=== PATIENT | male | born 1965 | race Caucasian/White ===

== ENCOUNTER → 2019-03-12 14:42 | Outpatient (CLI) | payer OTHER, SELFPAY ==
--- NOTE | 2019-03-12 14:47 | XR_ITS ---
XR foot wt bearing LT 3V HISTORY: ITS.REASON: pain ORDERING PHYSICIAN: Jackie Mayfield DPM PATIENT AGE: 53 years COMPARISON: None FINDINGS: There is moderate hallux valgus with osteoarthritis of the first MTP joint and bony hypertrophic change of the distal aspect of the first metatarsal. A lucency is present at the distal aspect of the first metatarsal 12 mm consistent with a subarticular cyst. There is hammertoe deformity of the second toe. No fracture or dislocation. No lytic or blastic change. IMPRESSION: Hallux valgus with osteoarthritis and bunion formation with hammertoe deformity of second toe
--- NOTE | 2019-03-12 14:47 | XR_ITS ---
XR foot wt bearing RT 3V HISTORY: ITS.REASON: pain ORDERING PHYSICIAN: Jackie Mayfield DPM PATIENT AGE: 53 years COMPARISON: None FINDINGS: No fracture or dislocation. No lytic or blastic change. There is normal mineralization.. The joint spaces are well-preserved. No significant degenerative/arthritic changes. No erosive changes evident. IMPRESSION: Negative, no acute finding
== END ==
PROVIDERS: PCP Nurse Practitioner; Visit Provider Podiatrist
DX: M79.672 Pain in left foot (principal); M79.671 Pain in right foot
CPT/HCPCS: 73630

== ENCOUNTER → 2019-05-25 10:35 | Outpatient (POV) | payer OTHER, SELFPAY | PROVIDERS: Visit Provider Specialist | DX: R20.2 Paresthesia of skin (principal); M79.604 Pain in right leg; M79.605 Pain in left leg | CPT/HCPCS: 95886; 95909 ==

== ENCOUNTER → 2020-09-02 11:03 | Outpatient (CLI) | payer OTHER, SELFPAY | PROVIDERS: PCP Family Medicine; Visit Provider Nurse Practitioner | DX: G47.33 Obstructive sleep apnea (adult) (pediatric) (principal) | CPT/HCPCS: G0399 ==

== ENCOUNTER → 2021-11-07 08:19 | Outpatient (CLI) | payer OTHER, SELFPAY | PROVIDERS: Visit Provider Nurse Practitioner | DX: Z20.822 Contact with and (suspected) exposure to COVID-19 (principal) | CPT/HCPCS: C9803; U0003; U0005 ==

== ENCOUNTER → 2022-01-03 10:24 | Outpatient (CLI) | payer BC, SELFPAY ==
--- NOTE | 2022-01-03 10:34 | US_ITS ---
FINAL REPORT CLINICAL HISTORY: HIGH TRIGLYCERIDES,ELEVATED LIVER FUNCTION; obesity FINDINGS: Sonographic images of the right upper quadrant were obtained. The pancreas is partially obscured. The liver has increased echogenicity consistent with fatty infiltration. The gallbladder appears normal without evidence of gallstones.There is no evidence of biliary ductal dilatation.The common duct measures 5 mm. Limited images of the right kidney are unremarkable. IMPRESSION: Fatty infiltration of the liver. Reviewed, Interpreted and Dictated by Vin Pardo III, MD Transcribed by Julianna Ortiz Authenticated by Vin Pardo III, MD on 01/03/2022 12:31:04 PM [facility]
== END ==
PROVIDERS: PCP Family Medicine; Visit Provider Family Medicine
DX: E78.1 Pure hyperglyceridemia (principal); R79.89 Other specified abnormal findings of blood chemistry
CPT/HCPCS: 76705

== ENCOUNTER → 2023-01-15 14:01 | Outpatient (CLI) | payer BC, SELFPAY ==
[2023-01-15 19:52] LABS: Basophils # 0.1 K/mm3 (0-0.2); Eosinophils # 0.1 K/mm3 (0.0-0.4); Eosinophils % 1.8 % (0.1-12.0); Hemoglobin 16.3 g/dL (14.1-18.0); Lymphocytes # 2.3 K/mm3 (0.7-4.5); Lymphocytes % 29.4 % (10-50); Mean Corpuscular HGB Conc 31.9 g/dL (31.8-35.4); Mean Corpuscular Hemoglobin 34.9 pg (27.0-31.2); Mean Corpuscular Volume 109.3 fl (80-94); Mean Platelet Volume 9.6 fl (7.4-10.4); Monocytes # 0.5 K/mm3 (0.1-1.0); Monocytes % 6.2 % (1.7-9.3); Neutrophils # 4.8 K/mm3 (1.8-7.8); Neutrophils % 61.7 % (37.0-80.0); Platelet Count 249 K/mm3 (142-424); Red Blood Count 4.67 M/mm3 (4.60-6.20); Red Cell Distribution Width 13.6 % (11.5-17.5); White Blood Count 7.7 K/mm3 (4.8-10.8)
[2023-01-15 20:55] LABS: Alanine Aminotransferase 51 U/L (12-78); Albumin Level 4.6 g/dl (3.5-5.0); Alkaline Phosphatase 111 U/L (38-126); Anion Gap 11.3 mEq/L (5-15); Aspartate Amino Transferase 46 U/L (17-59); Bilirubin,Total 0.7 mg/dl (0.2-1.3); Blood Urea Nitrogen 12 mg/dl (9-20); Calcium 9.2 mg/dl (8.4-10.2); Carbon Dioxide 27 mmol/L (22.0-30.0); Chloride 100 mmol/L (98-107); Chol/HDL Ratio 3.9 (1-3.5); Cholesterol 180 mg/dl (140-200); Estimated Glomerular Filt Rate 86 ml/min (>60); GFR (African American) 105 ML/MIN (>60); Globulin 2.3 g/dL (1.3-3.2); Glucose 99 mg/dl (74-100); HDL Cholesterol 46 mg/dl (40-60); Potassium 4.3 mmoL/L (3.5-5.1); Sodium 134 mmol/L (136-145); Total Protein,Serum 6.9 g/dl (6.3-8.2); Triglycerides 284 mg/dl (30-150); VLDL Cholesterol 57 mg/dL (0-40)
[2023-01-15 21:07] LABS: Direct LDL Cholesterol 95.74 mg/dL (100-129)
[2023-01-15 21:13] LABS: 25-OH Vitamin D, Total 33.5 ng/mL (30-100)
[2023-01-15 21:27] LABS: Prostate Specific Ag Screen 0.3 ng/ml (0.0-4.0); Thyroid Stimulating Hormone 2.02 uIU/mL (0.465-4.68)
== END ==
PROVIDERS: PCP Physician Assistant; Visit Provider Physician Assistant
DX: I10 Essential (primary) hypertension (principal); Z12.5 Encounter for screening for malignant neoplasm of prostate; E66.9 Obesity, unspecified; Z68.34 Body mass index [BMI] 34.0-34.9, adult
CPT/HCPCS: 80053; 80061; 82306; 84443; 85025; G0103

== ENCOUNTER → 2023-01-25 07:34 | Outpatient (CLI) | payer BC, SELFPAY ==
--- NOTE | 2023-01-25 07:34 | MR_ITS ---
FINAL REPORT CLINICAL HISTORY: cervical nerve radiculopathy. RIGHT SIDED NECK AND SHOULDER PAIN FINDINGS: Multi planar MR imaging was obtained of the cervical spine. There is abnormal decreased signal throughout the cervical discs. There is mild loss of height at C5-6. There is no malalignment. The cervical cord demonstrates normal signal and configuration. C2-C3: There is no evidence of significant disc bulge or protrusion. There is no significant facet hypertrophy. C3-C4: Moderate diffuse disc bulge and endplate hypertrophy are present. There is mild right and high-grade left neural foraminal narrowing. C4-C5: Moderate diffuse disc bulge is present with moderate bilateral neural foraminal narrowing. C5-C6: Mild diffuse disc bulge is present. There is endplate hypertrophy, eccentric to the right with moderate right and mild left neural foraminal narrowing. C6-C7: There is no evidence of significant disc bulge or protrusion. There is no significant facet hypertrophy. C7-T1: There is no evidence of significant disc bulge or protrusion. There is no significant facet hypertrophy. IMPRESSION: Neural foraminal compromise, most evident on the left at C3-4, bilaterally at C4-5, and on the right at C5-6. Reviewed, Interpreted and Dictated by Chele Gann MD Transcribed by Phuong Carmona Authenticated and [facility]
== END ==
PROVIDERS: PCP Physician Assistant; Visit Provider Physician Assistant
DX: M54.12 Radiculopathy, cervical region (principal)
CPT/HCPCS: 72141; 76376

== ENCOUNTER → 2023-02-18 14:42 | Outpatient (POV) | payer BC, SELFPAY ==
[2023-02-18 15:38] VITALS: RESP 18; BMI 33.5
--- NOTE | 2023-02-18 15:56 | EXP.PAIN.OV ---
HPI Data of Consult Patient: new to practice Consult date: 02/18/23 Requesting Physician: Alexia Nicholson APRN Consult Narrative Reason for consult: Bilateral shoulder pain, bilateral upper extremity numbness History of present illness: Mr. Dahl is a 57 year old male who presents today as a new patient. He is a referral from Isabell Goldman's office. Today he rates his pain a 6 out of 10. He does state that his pain is in his bilateral shoulders with radiating symptoms into his upper extremities causing significant numbness. Patient does describe his shoulder pain as an aching, sharp sensations that are worse with increased activity or certain movements. Patient does state this has been going on for at least 3 months however he has had numbness in his upper extremities for at least 8 years. He does state that around that same time he had his right thumb go numb and its never came back. Patient denies any specific trauma or injury. He does state that his numbness in his upper extremities does cause significant interference with his ability to sleep. He has tried muscle relaxers and NSAIDs in the past with no additional relief. Patient has also used [id number] Tylenol and ibuprofen along with heat and ice and a TENS unit that did give some relief. Patient has also had Biofreeze that stated did okay however not long-term relief. Patient denies any previous surgery or physical therapy. He has not had any injections. Patient does state that his right arm is worse than the left. He is scheduled to do an EMG test next Saturday. He does state that he was seeing a chiropractor in the past however he did not get additional relief. Patient is not on any scheduled medications. Patient is very active and works at [employer]. His Saul is [phone]. Its been reviewed and appropriate. CC: Alexia Nicholson APRN [facility] Disclaimer: The information contained in this section may have been updated after the patient was seen, as this information can be updated by other users. Medical History (Updated 02/18/23 @ 15:59 by Alexia Nicholson APRN) Environmental allergies GERD (gastroesophageal reflux disease) Gout Hyperlipidemia Hypertension Family History Sister Cancer Brother Cancer Father Cancer Hypertension Coronary artery disease Social History (Updated 02/18/23 @ 15:39 by Veronica Cota RN) Smoking Status: Current every day smoker (1 pack per day) tobacco type: cigarettes packs per day: 1 alcohol intake: current current occupational status: employed Travel in the last 8 weeks: None Review of Systems Review of Systems Review of systems:: pertinent systems reviewed and negative unless documented below Review of systems (narrative): Review of Systems: General: No recent weight changes, no fever, no sleep disturbances Respiratory: No cough, no shortness of air, no recurring pulmonary infections Cardiovascular/peripheral vascular: No chest pain, no palpitations, no edema, no shortness of breath Gastrointestinal: No new onset incontinence, normal bowel movements reported Genitourinary: No new onset incontinence Musculoskeletal: Bilateral shoulder pain, bilateral upper extremity numbness Psychiatric: [Normal mood/affect] Neurological: [Denies weakness in extremities], [denies balance issues] Meds Home Medications and Allergies Home Medications Medication Instructions Recorded Confirmed Type allopurinol 300 mg tablet 300 mg PO DIRECTED GOUT #90 tabs 03/12/19 02/18/23 History icosapent ethyl 1 gram capsule 1 g PO DIRECTED Cholesterol 03/12/19 02/18/23 History #360 caps losartan 100 1 tab PO DIRECTED BLOOD 03/12/19 02/18/23 History mg-hydrochlorothiazide 12.5 mg PRESSURE #90 tabs tablet metoprolol succinate 100 mg 100 mg PO DIRECTED BLOOD 03/12/19 02/18/23 History tablet,extended release 24 hr PRESSURE #90 tabs omeprazole 40 mg capsule,delayed
== END ==
PROVIDERS: Visit Provider Nurse Practitioner Family
DX: M50.30 Other cervical disc degeneration, unspecified cervical region (principal); M47.812 Spondylosis without myelopathy or radiculopathy, cervical region; M48.02 Spinal stenosis, cervical region; M25.511 Pain in right shoulder; M54.10 Radiculopathy, site unspecified
CPT/HCPCS: 99202; G0463

== ENCOUNTER → 2023-04-11 15:03 | Outpatient (CLI) | payer BC, SELFPAY ==
--- NOTE | 2023-04-11 15:03 | MR_ITS ---
PROCEDURE INFORMATION: Exam: MR Right Upper Extremity Joint Without Contrast; Shoulder Exam date and time: 04/11/2023 3:14 PM Age: 57 years old Clinical indication: Pain; Shoulder; Right; Additional info: Right biceps injury. Right shoulder pian on and off x 10 years TECHNIQUE: Imaging protocol: Magnetic resonance imaging of the right upper extremity without contrast. Exam focused on the shoulder. COMPARISON: MR CERVICAL SPINE WO CON 01/25/2023 7:34 AM FINDINGS: Bones/joints: There is some limitation by motion artifact on several sequences. Moderate osteoarthritis acromioclavicular joint with limited effusion and limited marrow edema on either side of the articulation. This is a type 2 acromion process with mild curvature. Minimal osteoarthritis in the glenohumeral joint. Glenoid labrum: Degenerative attrition and nondisplaced tear of the anterior superior labrum extending anteriorly to the 3 o'clock position and posteriorly to the 7 o'clock position. This extends toward but does not completely undermine the biceps anchor. Bursae: Minimal fluid in the subacromial subdeltoid bursa. Supraspinatus tendon: Moderate tendinopathy distal supraspinatus tendon. Small rim rent tear distal insertion of the bursal surface fibers measuring 9 mm anterior posterior dimension without full-thickness retracted tear. Infraspinatus tendon: Limited tendinopathy distal infraspinatus without tear. Subscapularis tendon: Unremarkable. No evidence of tear. Teres minor tendon: Unremarkable. No evidence of tear. Tendon of biceps brachii: See Glenoid labrum finding. Glenohumeral ligaments: Unremarkable. Soft tissues: Unremarkable. IMPRESSION: 1. There is some limitation by motion artifact on several sequences. 2. Degenerative attrition and nondisplaced tear of the anterior superior labrum extending anteriorly to the 3 o'clock position and posteriorly to the 7 o'clock position. This extends toward but does not completely undermine the biceps anchor. 3. Moderate tendinopathy distal supraspinatus tendon. Small rim rent tear distal insertion of the bursal surface fibers measuring 9 mm anterior posterior dimension without full-thickness retracted tear. 4. Minimal fluid in the subacromial subdeltoid bursa. 5. Moderate osteoarthritis acromioclavicular joint with limited effusion and limited marrow edema on either side of the articulation. This is a type 2 acromion process with mild curvature. Minimal osteoarthritis in the glenohumeral joint.
== END ==
PROVIDERS: PCP Physician Assistant; Visit Provider Physician Assistant
DX: M25.511 Pain in right shoulder (principal); S46.201D Unspecified injury of muscle, fascia and tendon of other parts of biceps, right arm, subsequent encounter
CPT/HCPCS: 73221

== ENCOUNTER 2023-12-06 07:24 | Day surgery (SDC) | payer BC, SELFPAY ==
[2023-12-03 13:42] VITALS: BMI 34.1
[2023-12-06] MEDS: LACTATED RINGERS 1000ML 1,000 ML 25 ML IV (07:41)
[2023-12-06 07:46] VITALS: BP 167/97; PULSE 77; RESP 18; TEMP 36.4; O2SAT 98
--- NOTE | 2023-12-06 08:50 | EXP.ANES.CKL ---
[facility] Disclaimer: The information contained in this section may have been updated after the patient was seen, as this information can be updated by other users. Medical History Environmental allergies GERD (gastroesophageal reflux disease) Gout Hyperlipidemia Hypertension Skin cancer Sleep apnea Unspecified injury of muscle, fascia and tendon of other parts of biceps, right arm, subsequent encounter Surgical History No significant past surgical history Family History Sister Cancer Brother Cancer Father Cancer Hypertension Coronary artery disease Social History Smoking Status: Current every day smoker (1 pack per day) tobacco type: cigarettes packs per day: 1 alcohol intake: current substance use type: denies use current occupational status: employed Travel in the last 8 weeks: None [facility] Anesthesia Checklist Patient Identification Patient Identification: Arm Band Structural Data Admitted From: Home Planned Operative Procedure/s: Colonoscopy Consent for Planned Operative Procedure(s) Verified: Yes Verified Documents: Surgical Consent and History and Physical NPO Status Verified Time NPO: 00:00 Additional verifications Anesthesia Reactions: No Airway Assessment Mallampati Score:: Class III C-Spine Mobility Assessed: Yes TMJ Mobility Assessed: Yes Dentition: Good Dentition Neurological Assessment Level of Consciousness: Awake and Alert Anesthesia Plan Anesthesia Risk discussed: Yes Anesthesia Plan: Verified ASA Class: II Anesthesia Type: MAC
--- NOTE | 2023-12-06 08:52 | P.PCN_ITS ---
Procedure: Date: 12/06/23 Patient Date of :: 1965 Procedure Performed:: Total colonoscopy with polypectomy using hot snare, cold snare, and biopsy forceps Indications:: Patient is a 58-year-old male referred by Isabell Goldman for screening colonoscopy. He did have a colonoscopy reportedly about 15 years ago and had polyps. His sister had colon cancer diagnosed in her 30s and she ultimately developed wi despread metastatic disease. Performing Provider:: Vin Oviedo MD Referring Provider:: Isabell Goldman Sedation:: MAC sedation Procedure:: Patient history was obtained and appropriate physical examination was performed. Patient's medications and allergies were reviewed. Informed consent was obtained after explaining the benefits, alternatives, and risks of the procedure including, but not limited to, bleeding, perforation, missed lesions, and adverse reaction to anesthesia medications. Patient was transported to endoscopy procedure room. Patient was connected to monitoring devices. Throughout the procedure the patient's blood pressure, pulse, and oxygen saturations were monitored continuously. Patient identification and planned procedure were verified by the staff. Patient was positioned in lateral decubitus position. Digital anorectal exam was performed. Variable stiffness Olympus colonoscope was inserted and advanced under direct visualization to the cecum. Adequacy of the colonic preparation was noted. The colonoscope was advanced a short distance into the terminal ileum. The colonoscope was then slowly withdrawn while carefully examining the color, texture, anatomy, and integrity of the mucosoa circumferentially. Within the rectum retroflexion was performed. Colonoscope was then withdrawn. . He had pandiverticulosis. In the ascending colon there was a moderate ridge polyp removed with hot snare. Residual probable polypoid tissue removed with biopsy forceps. There was some minor oozing and Hemoclip was deployed for hemostasis. In the descending colon there was a small adenomatous appearing polyp removed with cold snare. There was some minor oozing and Hemoclip was deployed for hemostasis. In the rectum there was a tiny diminutive polyp removed with biopsy forceps. There was some minor oozing which stopped after some period of observation. Upon withdrawal of the colonoscope there was thought to be a possible sigmoid polyp. However with repeated reinsertion and withdrawal and inspection of the colon no polyp was noted. . Findings:: Pandiverticulosis Polyps as noted above Recommendations:: Repeat colonoscopy likely within 2 or 3 years given family history and polyps pending pathology Complications:: None immediate Estimated blood obtained (mL): 4 Colonoscopy Component Colonoscopy Component Was a colonoscopy performed during today's procedure?: Yes Recommended follow up colonoscopy of at least 10 years?: No If no, follow up colonoscopy recommended in ___ years?: 3 Reason for not recommending >/= 10 yr follow-up interval?: Polyps
[2023-12-06 08:53] VITALS: O2SAT 98
[2023-12-06 09:48] VITALS: BP 144/99; PULSE 87; RESP 19; TEMP 36.2; O2SAT 94
[2023-12-06 09:58] VITALS: BP 140/90; PULSE 88; RESP 18; O2SAT 95
[2023-12-06 10:08] VITALS: BP 145/83; PULSE 86; RESP 18; O2SAT 95
== END 2023-12-06 09:30 | disposition home or self-care (01) ==
PROVIDERS: PCP Physician Assistant; Visit Provider Surgery
PROC: 0DJD8ZZ Inspection of Lower Intestinal Tract, Via Natural or Artificial Opening Endoscopic (ICD-10-PCS; CPT 45380; principal; 2023-12-06 08:30)
DX: Z12.11 Encounter for screening for malignant neoplasm of colon (principal); D12.4 Benign neoplasm of descending colon; K62.1 Rectal polyp; D12.2 Benign neoplasm of ascending colon; K57.90 Diverticulosis of intestine, part unspecified, without perforation or abscess without bleeding; Z86.010 Personal history of colon polyps; Z80.0 Family history of malignant neoplasm of digestive organs
CPT/HCPCS: 45380; 45385

== ENCOUNTER 2024-01-16 18:33 | Outpatient (CLI) | payer BC, SELFPAY ==
[2024-01-16 18:17] LABS: Basophils # 0.1 K/mm3 (0-0.2); Basophils % 1.3 % (0.1-2.0); Eosinophils # 0.2 K/mm3 (0.0-0.4); Eosinophils % 2.4 % (0.1-12.0); Hematocrit 45.4 % (42.0-52.0); Hemoglobin 15.2 g/dL (14.1-18.0); Lymphocytes # 2.6 K/mm3 (0.7-4.5); Lymphocytes % 34.4 % (10-50); Mean Corpuscular HGB Conc 33.5 g/dL (31.8-35.4); Mean Corpuscular Hemoglobin 37.7 pg (27.0-31.2); Mean Corpuscular Volume 112.6 fl (80-94); Mean Platelet Volume 8.8 fl (7.4-10.4); Monocytes # 0.5 K/mm3 (0.1-1.0); Monocytes % 6.1 % (1.7-9.3); Neutrophils # 4.2 K/mm3 (1.8-7.8); Neutrophils % 55.7 % (37.0-80.0); Platelet Count 237 K/mm3 (142-424); Red Blood Count 4.03 M/mm3 (4.60-6.20); Red Cell Distribution Width 13.6 % (11.5-17.5); White Blood Count 7.5 K/mm3 (4.8-10.8)
[2024-01-16 18:47] LABS: Alanine Aminotransferase 41 U/L (12-78); Albumin Level 4.5 g/dl (3.5-5.0); Albumin/Globulin Ratio 2.1 (1.1-1.8); Alkaline Phosphatase 102 U/L (38-126); Anion Gap 11.8 mEq/L (5-15); Aspartate Amino Transferase 37 U/L (17-59); Bilirubin,Total 0.7 mg/dl (0.2-1.3); Blood Urea Nitrogen 17 mg/dl (9-20); Calcium 9.8 mg/dl (8.4-10.2); Carbon Dioxide 26 mmol/L (22.0-30.0); Chloride 107 mmol/L (98-107); Chol/HDL Ratio 4.7 (1-3.5); Cholesterol 185 mg/dl (140-200); Estimated Glomerular Filt Rate 86 ml/min (>60); GFR (African American) 104 ML/MIN (>60); Globulin 2.1 g/dL (1.3-3.2); Glucose 87 mg/dl (74-100); HDL Cholesterol 39 mg/dl (40-60); Potassium 3.8 mmoL/L (3.5-5.1); Sodium 141 mmol/L (136-145); Total Protein,Serum 6.6 g/dl (6.3-8.2); Triglycerides 388 mg/dl (30-150); VLDL Cholesterol 78 mg/dL (0-40)
[2024-01-16 18:58] LABS: Direct LDL Cholesterol 84.21 mg/dL (100-129)
[2024-01-16 19:05] LABS: 25-OH Vitamin D, Total 43.9 ng/mL (30-100)
[2024-01-16 19:17] LABS: Prostate Specific Ag Screen 0.2 ng/ml (0.0-4.0); Thyroid Stimulating Hormone 2.71 uIU/mL (0.465-4.68)
== END 2024-01-16 23:59 ==
LOC: LAB.DROPOF 18:33
PROVIDERS: PCP Physician Assistant; Visit Provider Physician Assistant
DX: I10 Essential (primary) hypertension (principal); Z79.899 Other long term (current) drug therapy; K21.9 Gastro-esophageal reflux disease without esophagitis; E78.5 Hyperlipidemia, unspecified
CPT/HCPCS: 80053; 80061; 82306; 84443; 85025; G0103

== ENCOUNTER 2024-10-02 11:18 | Outpatient (CLI) | payer BC, SELFPAY ==
--- NOTE | 2024-10-02 11:32 | XR_ITS ---
FINAL REPORT CLINICAL HISTORY: Left Knee Pain FINDINGS: Left knee Three views were obtained. There is no fracture or dislocation. There are mild and moderate degenerative changes, worst involving the patellofemoral compartment. There is mild vascular calcification. IMPRESSION: Degenerative changes as above. Reviewed, Interpreted and Dictated by Vin Pardo III, MD Transcribed by Phuong Carmona Authenticated and . [facility]
[2024-10-02 11:40] LABS: Basophils # 0.1 K/mm3 (0-0.2); Basophils % 1.5 % (0.1-2.0); Eosinophils # 0.2 K/mm3 (0.0-0.4); Eosinophils % 2.4 % (0.1-12.0); Hematocrit 45.8 % (42.0-52.0); Hemoglobin 16.6 g/dL (14.1-18.0); Lymphocytes # 2.1 K/mm3 (0.7-4.5); Lymphocytes % 32.9 % (10-50); Mean Corpuscular HGB Conc 36.1 g/dL (31.8-35.4); Mean Corpuscular Hemoglobin 36.6 pg (27.0-31.2); Mean Corpuscular Volume 101.5 fl (80-94); Mean Platelet Volume 7.5 fl (7.4-10.4); Monocytes # 0.4 K/mm3 (0.1-1.0); Monocytes % 6.4 % (1.7-9.3); Neutrophils # 3.6 K/mm3 (1.8-7.8); Neutrophils % 56.9 % (37.0-80.0); Platelet Count 199 K/mm3 (142-424); Red Blood Count 4.52 M/mm3 (4.60-6.20); Red Cell Distribution Width 13.4 % (11.5-17.5); White Blood Count 6.4 K/mm3 (4.8-10.8)
[2024-10-02 12:22] LABS: Albumin Level 4.4 g/dl (3.5-5.0); Chloride 104 mmol/L (98-107); Potassium 4.2 mmoL/L (3.5-5.1); Sodium 138 mmol/L (136-145)
[2024-10-02 12:25] LABS: Alanine Aminotransferase 44 U/L (12-78); Alkaline Phosphatase 85 U/L (38-126); Anion Gap 7.2 mEq/L (5-15); Aspartate Amino Transferase 43 U/L (17-59); Bilirubin,Total 0.6 mg/dl (0.2-1.3); Blood Urea Nitrogen 16 mg/dl (9-20); Carbon Dioxide 31 mmol/L (22.0-30.0); Cholesterol 213 mg/dl (140-200); Estimated Glomerular Filt Rate 76 ml/min (>60); GFR (African American) 92 ML/MIN (>60); Globulin 2.2 g/dL (1.3-3.2); Total Protein,Serum 6.6 g/dl (6.3-8.2); Triglycerides 323 mg/dl (30-150); VLDL Cholesterol 65 mg/dL (0-40)
[2024-10-02 12:26] LABS: Calcium 9.7 mg/dl (8.4-10.2); Chol/HDL Ratio 4.8 (1-3.5); Glucose 119 mg/dl (74-100); HDL Cholesterol 44 mg/dl (40-60)
[2024-10-02 13:08] LABS: Uric Acid 7.3 mg/dl (3.5-8.5)
[2024-10-02 14:08] LABS: Vitamin B12 297 pg/mL (239-931)
[2024-10-07 03:37] LABS: Testosterone,Free 4.8 pg/mL (6.6-18.1)
== END 2024-10-02 23:59 | disposition home or self-care (01) ==
LOC: LAB 11:20
PROVIDERS: PCP Family Medicine; Visit Provider Family Medicine
DX: M10.9 Gout, unspecified (principal); E78.5 Hyperlipidemia, unspecified; I10 Essential (primary) hypertension; R79.89 Other specified abnormal findings of blood chemistry; D75.89 Other specified diseases of blood and blood-forming organs; M25.562 Pain in left knee; Z72.0 Tobacco use
CPT/HCPCS: 36415; 73562; 80053; 80061; 82607; 84402; 84550; 85025

== ENCOUNTER 2024-10-07 10:30 | Outpatient (CLI) | payer BC, SELFPAY ==
[2024-10-13 11:20] LABS: Testosterone,Free 3.6 pg/mL (6.6-18.1)
== END 2024-10-07 23:59 | disposition home or self-care (01) ==
LOC: LAB.DROPOF 10-08 09:08
PROVIDERS: PCP Family Medicine; Visit Provider Family Medicine
DX: R79.89 Other specified abnormal findings of blood chemistry (principal)
CPT/HCPCS: 84402

== ENCOUNTER 2024-10-20 10:40 | Outpatient (CLI) | payer BC, SELFPAY ==
--- NOTE | 2024-10-20 10:41 | CT_ITS ---
FINAL REPORT TECHNIQUE: Thin section axial images were obtained through the lungs using a low-dose technique per lung cancer screening protocol. Reconstruction images were obtained using the axial data. Exam was performed using dose reduction technique. CLINICAL HISTORY: lung cancer screening. current smoker for 30 years 1ppd COMPARISON: None FINDINGS: CTDLvol: 2.90 DLP: 105.77 59-year-old male, current smoker 30 pack year history Lungs: No acute pulmonary abnormality. There is a 2 mm left lower lobe subpleural nodule best seen on image #62 of series 4. There is a 5 mm nodule in or adjacent to the right minor fissure best seen on image #50. There is a right upper lobe 4 mm nodule best seen on image #30. Lymph nodes: No thoracic lymphadenopathy. Mediastinum: Heart size is normal. Pleura/pericardium: No pleural or pericardial effusion. Other: No acute abnormality in the upper abdomen. IMPRESSION: Bilateral noncalcified nodules are noted, less than 6 mm in size. Lung RADS: 2 Recommendation: 12-month follow-up LDCT Reviewed, Interpreted and Dictated by Allyn Messina MD Transcribed by Jeimy Crystal Authenticated and [facility]
== END 2024-10-20 23:59 | disposition home or self-care (01) ==
LOC: RAD 10:41
PROVIDERS: PCP Family Medicine; Visit Provider Family Medicine
DX: F17.210 Nicotine dependence, cigarettes, uncomplicated (principal)
CPT/HCPCS: 71271

== ENCOUNTER 2025-03-05 13:37 | Outpatient (CLI) | payer BC, SELFPAY ==
[2025-03-05 19:17] LABS: Alanine Aminotransferase 33 U/L (12-78); Albumin Level 4.5 g/dl (3.5-5.0); Albumin/Globulin Ratio 2.1 (1.1-1.8); Alkaline Phosphatase 89 U/L (38-126); Aspartate Amino Transferase 36 U/L (17-59); Bilirubin,Total 0.8 mg/dl (0.2-1.3); Blood Urea Nitrogen 14 mg/dl (9-20); Calcium 9.3 mg/dl (8.4-10.2); Carbon Dioxide 29 mmol/L (22.0-30.0); Chloride 101 mmol/L (98-107); Chol/HDL Ratio 2.9 (1-3.5); Cholesterol 145 mg/dl (140-200); Estimated Glomerular Filt Rate 86 ml/min (>60); GFR (African American) 104 ML/MIN (>60); Globulin 2.1 g/dL (1.3-3.2); Glucose 94 mg/dl (74-100); HDL Cholesterol 50 mg/dl (40-60); Sodium 136 mmol/L (136-145); Total Protein,Serum 6.6 g/dl (6.3-8.2); Triglycerides 163 mg/dl (30-150); VLDL Cholesterol 33 mg/dL (0-40)
[2025-03-05 19:28] LABS: Direct LDL Cholesterol 74.73 mg/dL (100-129)
[2025-03-05 20:13] LABS: Hemoglobin A1C 5.6 % (4.0-6.0)
== END 2025-03-05 23:59 | disposition home or self-care (01) ==
LOC: LAB.DROPOF 03-08 13:38
PROVIDERS: PCP Family Medicine; Visit Provider Family Medicine
DX: E78.5 Hyperlipidemia, unspecified (principal); R73.09 Other abnormal glucose; I10 Essential (primary) hypertension
CPT/HCPCS: 80053; 80061; 83036

== ENCOUNTER 2025-06-18 10:23 | Outpatient (CLI) | payer BC, SELFPAY ==
[2025-06-18 15:04] LABS: Hematocrit 51.7 % (42.0-52.0); Hemoglobin 17.9 g/dL (14.1-18.0); Mean Corpuscular HGB Conc 34.6 g/dL (31.8-35.4); Mean Corpuscular Hemoglobin 36.5 pg (27.0-31.2); Mean Corpuscular Volume 105.3 fl (80-94); Platelet Count 241 K/mm3 (142-424); Red Blood Count 4.91 M/mm3 (4.60-6.20); White Blood Count 5.2 K/mm3 (4.8-10.8)
[2025-06-18 15:48] LABS: Albumin Level 4.5 g/dl (3.5-5.0); Chloride 100 mmol/L (98-107); Potassium 4.7 mmoL/L (3.5-5.1); Sodium 137 mmol/L (136-145)
[2025-06-18 15:50] LABS: Alanine Aminotransferase 21 U/L (12-78); Alkaline Phosphatase 66 U/L (38-126); Anion Gap 14.7 mEq/L (5-15); Aspartate Amino Transferase 36 U/L (17-59); Bilirubin,Total 1.0 mg/dl (0.2-1.3); Blood Urea Nitrogen 15 mg/dl (9-20); Carbon Dioxide 27 mmol/L (22.0-30.0); Creatinine,Serum 0.90 mg/dl (0.66-1.25); Estimated Glomerular Filt Rate 86 ml/min (>60); GFR (African American) 104 ML/MIN (>60)
[2025-06-18 15:51] LABS: Albumin/Globulin Ratio 2.0 (1.1-1.8); Calcium 9.6 mg/dl (8.4-10.2); Cholesterol 135 mg/dl (140-200); Globulin 2.2 g/dL (1.3-3.2); Glucose 62 mg/dl (74-100); HDL Cholesterol 51 mg/dl (40-60); Total Protein,Serum 6.7 g/dl (6.3-8.2); Triglycerides 98 mg/dl (30-150); Uric Acid 5.0 mg/dl (3.5-8.5)
[2025-06-18 16:09] LABS: RBC Morphology Normal; Total Cells Counted 100
[2025-06-18 16:45] LABS: Vitamin B12 293 pg/mL (239-931)
[2025-06-18 17:02] LABS: Folate 3.01 ng/mL
--- OUTSIDE RECORDS SUMMARY | 2025-06-21 10:25 | XMS_ITS | Clinical Summary ---
Author Organization [facility] Address [address] [place] [id number] Phone [email or web address] Care Team Providers Care Teller Coordinator Name Role Phone Unavailable Primary Care Provider Unavailabl e Allergies No known active allergies Medications losartan-hydroC HLOROthiazide (HYZAAR) 100-12.5 MG per tablet TAKE 1 TABLET BY MOUTH ONCE DAILY FOR 90 DAYS 2 03/19/2019 Active metoprolol succinate XL (TOPROL-XL) 100 MG 24 hr tablet TAKE 1 TABLET BY MOUTH ONCE DAILY FOR 90 DAYS 3 03/19/2019 Active omeprazole (PriLOSEC) [address] capsule TAKE 1 CAPSULE BY MOUTH ONCE DAILY FOR 90 DAYS 2 05/04/2019 Active VASCEPA 1 g capsule TAKE 2 CAPSULES BY MOUTH TWICE DAILY WITH MEALS 5 05/04/2019 Active Active Problems Problem Noted Date Diagnosed Date Allergic urticaria 02/09/2014 Overview (03/19/2018): Social History Tobacco Use Types Packs/Day Years Used Date Smoking Tobacco: Every Day Cigarettes 1 21 Smokeless Tobacco: Never Tobacco Cessation:Counseling Given: No Alcohol Use Standard Drinks/Week Comments Yes 0 (1 standard drink = 0.6 oz pur e alcohol) Intimate Partner Violence Answer Date R ecorded Insults You Not on file 01/31/2021 Threatens You Not on file 01/31/2021 Screams at You Not on file 01/31/2021 Physically Hurt Not on file 01/31/2021 Intimate Partner Violence Score Not on file 01/31/2021 Stress Answer Date Recorded Stress in your Life Not on file 08/24/2024 Dealing with Stress 3 08/24/2024 Sex and Gender Information Value Date Recorded Sex Assigned at Not on file Legal Sex Male 8:09 AM CDT Gender Identity Not on file Sexual Orientation Not on file Last Filed Vital Signs Vital Sign Reading Time Taken Comments Blood Pressure 140/86 04/30/2025 11:20 AM EDT Pulse 67 04/30/2025 11:20 AM EDT Temperature 36.7 C (98.1 F) 04/30/2025 11:20 AM EDT Respiratory Rate 14 11/17/2018 8:33 AM EST Oxygen Saturation 97% 04/30/2025 11:20 AM EDT Inhaled Oxygen Concentration - - Weight 111 kg (245 lb) 04/30/2025 11:20 AM EDT Height 193 cm (6' 4 ) 04/30/2025 11:20 AM EDT Body Mass Index 29.82 04/30/2025 11:20 AM EDT Plan of Treatment Health Maintenance Due Date Last Done Comments CT Colonography 1965 Colonoscopy 1965 Colorectal Cancer Screening Combo 1965 DNA Cologuard 1965 Dental Cleaning/Exam 1965 FIT or FOBT Test 1965 HIV Screening 1965 Hepatitis C Screening 1965 Sigmoidoscopy 1965 Annual Preventive Exam 1981 Hep B Infection Screening - Triple Screen 1981 Pneumococcal: Ped (0 to 5 Yr s) and At-Risk Member (6 to 64 Yrs) (1 of 2 - PCV) 1982 Zoster Immunization (1 of 2) 2013 Covid-19 Immunization (3 - season) 2024 10/05/2021, 01/26/2021 Influenza Immunization (#1) 2025 092 12/2019, 08/14/2018 Tetanus Diphtheria and Pertussis Immunization (2 - Td or Tdap) 03/05/2035 03/05/2025 Hepatitis A Immunization Aged Out 019, 02/21/2018 No longer eligible based on patient's age to complete this topic HIB Immunization Aged Out No longer e ligible based on patient's age to complete this topic HPV Immunization Aged Out No longer e ligible based on patient's age to complete this topic Hepatitis B Immunization Aged Out No longer eligible based on patient's age to complete this topic Polio Immunization Aged Out No longer eligible based on patient's age to complete this topic Insurance [employer]
== END 2025-06-18 23:59 ==
LOC: LAB.DROPOF 06-21 10:24
PROVIDERS: PCP Family Medicine; Visit Provider Family Medicine
DX: Z12.5 Encounter for screening for malignant neoplasm of prostate (principal); M10.9 Gout, unspecified; E78.5 Hyperlipidemia, unspecified; I10 Essential (primary) hypertension; R79.89 Other specified abnormal findings of blood chemistry; E78.1 Pure hyperglyceridemia
CPT/HCPCS: 80053; 80061; 82607; 82746; 84402; 84403; 84550; 85007; 85014; 85018; 85048; 85049; G0103

== ENCOUNTER 2025-07-13 15:47 | Outpatient (CLI) | payer BC, SELFPAY ==
--- OUTSIDE RECORDS SUMMARY | 2025-07-13 15:49 | XMS_ITS | Clinical Summary ---
Author Organization [facility] Address [address] [place] [phone] Phone [email or web address] Care Team Providers Care Visual Merchandising Associate Name Role Phone Unavailable Primary Care Provider [...] B Infection Screening - Triple Screen 1981 Pneumococcal Immunization (1 of 2 - PCV) 1982 Zoster Immunization (1 of 2) 2013 Covid-19 Immunization (3 - season) 2025 10/05/2021, 01/26/2021 Influenza Immunization (#1) 06/21/20252 12/2019, 08/14/2018 Tetanus Diphtheria and Pertussis Immunization [...] patient's age to complete this topic Insurance [facility] [id number] [place] [address]
--- NOTE | 2025-07-13 15:51 | XR_ITS ---
FINAL REPORT CLINICAL HISTORY: Left Foot Pain FINDINGS: AP, oblique and lateral views of the left foot were obtained. There is no prior exam for comparison. There is no acute fracture. Subluxation or dislocation of the second MTP joint is likely in the dorsal direction. There is advanced degenerative disease at the first MTP joint with hallux valgus deformity. An accessory navicular is noted. There is no acute soft tissue abnormality. IMPRESSION: Degenerative/chronic changes without acute osseous abnormality of the left foot. Reviewed, Interpreted and Dictated by Allyn Messina MD Transcribed by Susan Navarro Authenticated and [facility]
--- NOTE | 2025-07-13 15:51 | XR_ITS ---
FINAL REPORT CLINICAL HISTORY: Right Foot Pain FINDINGS: AP, oblique and lateral views of the right foot were obtained. There is no prior exam for comparison. There is no acute fracture or dislocation. Mild multijoint degenerative disease is most pronounced at the midfoot. Soft tissues are unremarkable. IMPRESSION: Degenerative change without acute osseous abnormality of the right foot. Reviewed, Interpreted and Dictated by Allyn Messina MD Transcribed by Susan Navarro Authenticated and . [facility]
== END 2025-07-13 23:59 | disposition home or self-care (01) ==
LOC: RAD 15:48
PROVIDERS: PCP Family Medicine; Visit Provider Family Medicine
DX: M19.072 Primary osteoarthritis, left ankle and foot (principal); M19.071 Primary osteoarthritis, right ankle and foot; M20.12 Hallux valgus (acquired), left foot; R93.6 Abnormal findings on diagnostic imaging of limbs
CPT/HCPCS: 73630

== ENCOUNTER 2025-10-12 15:27 | Outpatient (CLI) | payer BC, SELFPAY ==
--- OUTSIDE RECORDS SUMMARY | 2025-10-12 15:30 | XMS_ITS | Clinical Summary ---
Author Organization [facility] Address [address] [place] [phone] Phone [email or web address] Care Team Providers Care Enrober Name Role Phone Unavailable Primary Care Provider [...] Infection Screening - Triple Screen 1981 Pneumococcal: 50+ Years (1 o f 2 - PCV) 1982 Zoster Immunization (1 [...] this topic Insurance [employer] [id number] [id number] [place] [address]
--- OUTSIDE RECORDS SUMMARY | 2025-10-12 15:30 | XMS_ITS ---
Care Plan - [facility] Created on: October 12, 2025 Willy Handy : 1965 Sex: Male Author Organization [facility] Address [address] [place] [address] Phone Care Team Providers Care Integration Project Manager Name Role Phone Kaylan YU, Marsha Unavailable [phone] Jones CELESTE, Isabell Unavailable [phone]
--- OUTSIDE RECORDS SUMMARY | 2025-10-12 15:30 | XMS_ITS | Clinical Summary ---
Author Organization [facility] , [facility] Address [address] [place] [address] Phone Care Team Providers Care Facilities Clerk Name Role Phone Kaylan YU, Marsha Unavailable [phone] Isabell Goldman PA-C Unavailable [phone] Reason for Visit and Chief Complaint Intake Problems Includes: Problems addressed during this encounter and other active Problems Current Visit Onset Date Date of Diagnosis Resolved Date Provider Condition Status Joint Pain Shoulder Right 06/25/2023 06/25/2023 Jim Schulz MD Active Last Documented On 5 1:42AM ; [facility], [facility] Past Visits Onset Date Date of Diagnosis Resolved Date Provi juan Condition Status Neck Pain 07/29/2023 07/29/2023 Marsha Kimbrough MD Active Last Documented On 5 1:42AM ; [facility], [facility] Plan of Treatment Instructions to patient Intervention and counseling on cessation of tobacco use Last Documented On 3 5:31PM ; [facility] Assessments Includes: Assessments from this encounter No Assessments Recorded Instructions Includes: Instructions from this encounter Instructions to patient Intervention and counseling on cessation of tobacco use Last Documented On 3 5:31PM ; [facility] Medical Equipment - Implanted Devices Includes: Current Devices No Medical Equipment Recorded Medications Includes: Medications discussed during this encounter and other current Medications Current Medications (continue as prescribed) Vascepa 0.5 GM Oral Capsule 06/25/2023 Provider: Diagnosis: Last Documented On 3 5:31PM By Allyson Cash ; [facility] Albuterol Sulfate HFA 108 (9 0 Base) MCG/ACT Inhalation Aerosol Solution 06/07/2023 Provider: SHERLYN UNDERWOOD ER Diagnosis: Last Documented On 3 2:04PM By Robert Welsh ; [facility] Allopurinol 300 MG Oral Tablet 04/02/2023 Provider: SHERLYN KINGSLEY Diagnosis: Last Documented On 3 2:04PM By Robert Welsh ; [facility] Icosapent Ethyl 1 GM Oral Capsule 04/02/2023 Provide r: SHERLYN KINGSLEY Diagnosis: Last Documented On 3 2:04PM By Robert Welsh ; [facility] Losartan Potassium-HCTZ 100-12.5 MG Oral Tablet 2022 Provider: SHERLYN KINGSLEY Diagnosis: Last Documented On 3 2:04PM By Robert Welsh ; [facility] Metoprolol Succinate ER 100 MG Oral Tablet Extended Release 24 Hour 04/02/2023 Provider: SHERLYN KINGSLEY Diagnosis: Last Documented On 3 2:04PM By Robert Welsh ; [facility] Omeprazole 40 MG Oral Capsule Delayed Release 04/02/20 23 Provider: SHERLYN KINGSLEY Diagnosis: Last Documented On 3 2:04PM By Robert Welsh ; [facility] Rosuvastatin Calcium 10 MG Oral Tablet 04/02/2023 Pr ovider: SHERLYN KINGSLEY Diagnosis: Last Documented On 3 2:04PM By Robert Welsh ; [facility] Past Medications on file Methocarbamol 750 MG Oral Tablet 07/29/2023 - 08/28/2023 Provider: Marsha Kimbrough MD Diagnosis: Cervicalgia Take 1 tablet PO up to three times a day, NEEDED Last Documented On 3 4:10PM By Marsha Kimbrough ; [facility] Medrol 4 MG Oral Tablet Therapy Pack 07/29/2023 - 08/05/2023 Provider: Marsha Hall MD Diagnosis: Cervicalgia take as directed Last Documented On 3 4:10PM By Marsha Kimbrough ; [facility] Medications Administered Includes: Administered Medications from this encounter No Administered Medications Recorded Results Includes: Results discussed during this encounter No Results Recorded For Specified Dates History of Present Illness Includes: History of Present Illness from this encounter HPI Willy Dahl is a 57 year old male. - Symptoms improves w/ warm compress worse when sleeping. - Allergy list reviewed - Problem list reviewed - Medication list reviewed - Previous history of new onset pain Injury is not work related or an automotive accident - Patient pain level from 1-10: 5 - Yes, previous treatment. - History of Chiropractic Social History Description Last Updated Tobacco use 06/25/2023 Last Documented On 3 5:48PM ; [facility] Alcohol use 06/25/2023 Last Documented On 3 5:48PM ; [facility] Exercising regularly 06/25/2023 Last Documented On 3 5:48PM ; [facility] No caffeine use 06/25/2023 Last Documented On 3 5:48PM ; [facility] No recent change in diet 06/25/2023 Last Documented On 3 5:48PM ; [facility] Not using drugs 06/25/2023 Last Documented On 3 5:48PM ; [facility] Yes, current smoker. 06/25/2023 Last Documented On 3 5:48PM ; [facility] Sex - Male 01/06/2024 Last Documented On 4 10:49AM ; [facility] Smoking Status Unknown Medical History Includes: Medical History addressed during this encounter Description Last Updated Past medical and surgical history non-co ntributory 06/25/2023 Last Documented On 3 5:48PM ; [facility] Family History Includes: Family History addressed during this encounter Description Last Updated Maternal history of systemic hypertensio n 06/25/2023 Last Documented On 3 5:48PM ; [facility] Paternal history of family history of ca ncer 06/25/2023 Last Documented On 3 5:48PM ; [facility] Review of Systems Includes: Review of Systems from this encounter Systemic: Not feeling tired, no recent weight loss, and no recent weight gain. Head: No headache and no sinus pain. Eyes: No vision problems, no Cataracts, no Glasses/Contacts, and no Glaucoma. Otolaryngeal: No hearing loss and no tinnitus. Cardiovascular: No chest pain or discomfort, no palpitations, no Hypertension, and no High Cholesterol. Pulmonary: No daytime asthma symptoms and no chronic cough. No wheezing. Gastrointestinal: No heartburn and no abdominal pain. No Indigestion, no Acid Reflux, no Peptic Ulcer, no GI Stomach Bleed, and no Ulcers. Endocrine: No hot flashes, no muscle weakness, no Diabetes, no Hypothyroid, and no Hyperthyroid. Hematologic: No easy bleeding, no tendency for easy bruising, and no Anemia. Musculoskeletal: No Arthritis and no lower back pain. No soft tissue swelling and no localized joint pain. Neurological: No dizziness, no convulsions, and no numbness. Psychological: No anxiety, no emotional lability, no depression, and no insomnia. Not crying for no reason. Skin: No dry skin. No Ulcers, no Scars, and no rash. Allergic and Immunologic: No complaint of seasonal allergic reaction. Mental Status Includes: Mental Status from this encounter Description No anxiety Last Documented On 5:31PM ; [facility] Physical Exam Includes: Physical Exam from this encounter No Physical Exam Recorded Allergies Includes: Active Allergies No Known Allergies Care Facilities Clerk Name (Identifier) Role/Relation Location/Telecom Last Documented By Marsha Kimbrough MD ([id number]) Assigned practitioner (occupation) [address], [place], [place], [address] tel:[phone] Last Documented On 01/06/2024 10:49AM ; [facility] Isabell Goldman PA-C ([id number]) [address], [place], [place], [address] tel:[phone] Last Documented On 06/25/2023 5:31PM ; [facility] Encounters Encounter Provider Location (Healthcare Service Location) Date Check-In Time Check-Out Time Diagnosis Encounter Disposition Intake Jim Schulz MD [facility] 2022 5:29PM 11:59PM Payer Includes: Active Insurance Policies Plan Name (Payer ID) Coverage Type Member ID Group # Subscriber (ID) Relationship Effective Dates 1 - [facility] ([id number]) [id number] 2 Willy Dahl Self Last Documented On 3 8:38AM ; [facility], [facility] Clinical Notes Includes: Clinical Notes from this encounter * Progress note Date Encounter Last Documented by 06/25/2023 Intake Last documented on 06/25/2023; 5:48 PM, Jim Schulz MD; [facility] Active Problems & Conditions - Joint Pain, Localized in the Right Shoulder Referred Here Referred by LAST PCP VISIT 04/20/2023. History of Present Illness Willy Dahl is a 57 year old male. - Symptoms improves w/ warm compress worse when sleeping. - Allergy list reviewed - Problem list reviewed - Medication list reviewed - Previous history of new onset pain Injury is not work related or an automotive accident - Patient pain level from 1-10: 5 - Yes, previous treatment. - History of Chiropractic Current Medication - Vascepa 0.5 GM Oral Capsule take as directed 0 days, 0 refills Past Medical/Surgical History Past medical and surgical history non-contributory. Social History Yes, current smoker. Current diet: No recent change in diet. Caffeine use: No caffeine use. Tobacco use: Tobacco use. Alcohol: Alcohol use. Drug Use: Not using drugs. Habits: Exercising regularly. Allergies - No Known Allergies Family History Paternal: Cancer Maternal: Systemic hypertension Review Of Systems Systemic: Not feeling tired, no recent weight loss, and no recent weight gain. Head: No headache and no sinus pain. Eyes: No vision problems, no Cataracts, no Glasses/Contacts, and no Glaucoma. Otolaryngeal: No hearing loss and no tinnitus. Cardiovascular: No chest pain or discomfort, no palpitations, no Hypertension, and no High Cholesterol. Pulmonary: No daytime asthma symptoms and no chronic cough. No wheezing. Gastrointestinal: No heartburn and no abdominal pain. No Indigestion, no Acid Reflux, no Peptic Ulcer, no GI Stomach Bleed, and no Ulcers. Endocrine: No hot flashes, no muscle weakness, no Diabetes, no Hypothyroid, and no Hyperthyroid. Hematologic: No easy bleeding, no tendency for easy bruising, and no Anemia. Musculoskeletal: No Arthritis and no lower back pain. No soft tissue swelling and no localized joint pain. Neurological: No dizziness, no convulsions, and no numbness. Psychological: No anxiety, no emotional lability, no depression, and no insomnia. Not crying for no reason. Skin: No dry skin. No Ulcers, no Scars, and no rash. Allergic and Immunologic: No complaint of seasonal allergic reaction. Previous Tests Imaging: MRI Scan: An MRI was performed. Therapy - Intervention and counseling on cessation of tobacco use. Notes This dictation was done with voice recognition software and may contain errors and omissions. Practice Management Use of tobacco assessment performed Review of medications documented. Care Team - Isabell Goldman PA-C
--- OUTSIDE RECORDS SUMMARY | 2025-10-12 15:30 | XMS_ITS | Clinical Summary ---
Author Organization [facility] , [facility] Address [address] [place] [address] Phone Care Team Providers Care Photographic Restorer Name Role Phone Kaylan YU, Marsha Unavailable [phone] Isabell Goldman PA-C Unavailable [phone] Reason for Visit and Chief Complaint The Chief Complaint is: neck pain Problems Includes: Problems addressed during this encounter and other active Problems Current Visit Onset Date Date of Diagnosis Resolved Date Provider Condition Status Neck Pain 07/29/2023 07/29/2023 Marsha Kimbrough MD Active Last Documented On 5 1:42AM ; [facility] Past Visits Onset Date Date of Diagnosis Resolved Date Provider Condition Status Joint Pain Shoulder Right 06/25/2023 06/25/2023 Jim Schulz MD Active Last Documented On 5 1:42AM ; [facility] Plan of Treatment Pending Tests Order Diagnosis Results Due Ordering P rovider Therapy - Physical Therapy Cervical Cervicalgia 07/29/23 Marsha Kimbrough MD Last Documented On 3 3:51PM ; [facility] Instructions to patient Intervention and counseling on cessation of tobacco use Last Documented On 3 2:48PM ; [facility] Lose weight Last Documented On 3 2:45PM ; [facility] Assessments Includes: Assessments from this encounter Findings - Overweight - Last Documented On 07/30/2023 12:15PM ; [facility] Instructions Includes: Instructions from this encounter Instructions to patient Intervention and counseling on cessation of tobacco use Last Documented On 3 2:48PM ; [facility] Lose weight Last Documented On 3 2:45PM ; [facility] Medical Equipment - Implanted Devices Includes: Current Devices No Medical Equipment Recorded Medications Includes: Medications discussed during this encounter and other current Medications New / Renewed during this visit Marsha Kimbrough MD on 07/29/2023 Methocarbamol 750 MG Oral Tablet Provider: Marsha hays MD 30 day supply: 90 tablet, 0 refills Diagnosis: Cervicalgia Take 1 tablet PO up to three times a day, NEEDED [facility]: [id number] - [address] [place] [address] [facility] [address] - Last Documented On 3 4:10PM By Marsha Kimbrough ; [facility] Medrol 4 MG Oral Tablet Therapy Pack Provider: Marsha hays MD 7 day supply: 21 tablet, 0 refills Diagnosis: Cervicalgia take as directed Pharmacy: [id number] ([facility]) - [address] [facility] [address] [facility], [address] - Last Documented On 3 4:10PM By Marsha Kimbrough ; [facility] Current Medications (continue as prescribed) Vascepa 0.5 GM Oral Capsule 06/25/2023 Provider: Diagnosis: Last Documented On 3 5:31PM By Allyson Cash ; [facility] Albuterol Sulfate HFA 108 (9 0 Base) MCG/ACT Inhalation Aerosol Solution 06/07/2023 Provider: SHERLYN UNDERWOOD [facility] Diagnosis: Last Documented On 3 2:04PM By Robert Welsh ; [facility] Allopurinol 300 MG Oral Tablet 04/02/2023 Provider: SHERLYN KINGSLEY Diagnosis: Last Documented On 3 2:04PM By Robert Welsh ; [facility] Icosapent Ethyl 1 GM Oral Capsule 04/02/2023 Provide r: SHERLYN KINGSLEY Diagnosis: Last Documented On 3 2:04PM By Robert Welsh ; [facility] Losartan Potassium-HCTZ 100-12.5 MG Oral Tablet 2022 Provider: SHERLYN KINGSLEY Diagnosis: Last Documented On 3 2:04PM By Robert Welsh ; [facility] Metoprolol Succinate ER 100 MG Oral Tablet Extended Release 24 Hour 04/02/2023 Provider: SHERLYN KINGSLEY Diagnosis: Last Documented On 3 2:04PM By Robert Welsh ; [facility], [facility] Omeprazole 40 MG Oral Capsule Delayed Release 04/02/20 Provider: SHERLYN KINGSLEY Diagnosis: Last Documented On 3 2:04PM By Robert Welsh ; [facility], [facility] Rosuvastatin Calcium 10 MG Oral Tablet 04/02/2023 Pr ovider: SHERLYN KINGSLEY Diagnosis: Last Documented On 3 2:04PM By Robert Welsh ; [facility], [facility] Medications Administered Includes: Administered Medications from this encounter No Administered Medications Recorded Vital Signs Includes: Vital Signs from this encounter Vital Name 07/29/2023 02:49P Height (in) 76 Weight (lb) 282 Body Mass Index 34.3 Body Surface Area 2.6 Note: ct Last Documented: On 07/29/2023 2:49PM ; [facility], [facility] Results Includes: Results discussed during this encounter No Results Recorded For Specified Dates History of Present Illness Includes: History of Present Illness from this encounter ABBY Dahl is a 58 year old male. - Allergy list reviewed - Problem list reviewed - Medication list reviewed - Previous history of new onset pain Injury is not work related or an automotive accident - Patient pain level from 1-10: 2 - Yes, previous treatment. - History of Chiropractic Medications used for this condition: This is a very pleasant 58-year-old man seeing me as an in-house referral from Dr. Schulz. He is here as evaluation for neck pain and right greater than left radicular type pain. He does have a little bit of pain and perceived weakness in the left shoulder girdle, but the majority of his pain issues are in the right deltoid and down the right thumb. He said it got really bad a few months ago, but given a little bit of time and has started to improve over the last month. He is about to schedule physical therapy which Dr. Schulz recommended for him. He denies any difficulty with fine motor control in the hands. Denies any issues with his balance. He has never had neck or back surgeries. He only has a medical history of hypertension. He is a current 1 pack/day smoker. 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 Social History Description Last Updated Alcohol use 06/26/2023 Last Documented On 3 2:45PM ; [facility] Exercising regularly 06/26/2023 Last Documented On 3 2:45PM ; [facility], [facility] No caffeine use 06/26/2023 Last Documented On 3 2:45PM ; [facility], [facility] No recent change in diet 06/26/2023 Last Documented On 3 2:45PM ; [facility], [facility] Not using drugs 06/26/2023 Last Documented On 3 2:45PM ; [facility], [facility] Tobacco use 06/26/2023 Last Documented On 3 2:45PM ; [facility], [facility] Yes, current smoker. 06/26/2023 Last Documented On 3 2:45PM ; [facility], [facility] Sex - Male 01/06/2024 Last Documented On 4 10:49AM ; [facility], [facility] Smoking Status Unknown Procedures and Surgical History Includes: Procedures from this encounter Procedures Code Diagnosis Performing Provider Service L ocation Service Date intervention and counseling on cessation of tobacco use 4000F Last Documented On 3 2:48PM ; [facility], [facility] use of tobacco assessment performed 1000F Last Documented On 3 2:45PM ; [facility], [facility] review of medications documented 1160F Last Documented On 3 2:45PM ; [facility], [facility] an X-ray was performed 07/29/2023 Neck @ [id number] Last Documented On 3 2:48PM ; [facility], [facility] an MRI was performed 01/25/2023 Neck @ [facility] [id number] Last Documented On 3 2:48PM ; [facility], [facility] Medical History Includes: Medical History addressed during this encounter Description Last Updated Past medical and surgical history non-co ntributory 06/26/2023 Last Documented On 3 2:45PM ; [facility] Family History Includes: Family History addressed during this encounter Description Last Updated Family history of cancer 07/29/2023 Last Documented On 3 12:15PM ; [facility] Family history of systemic hypertension 07/29/2023 Last Documented On 3 12:15PM ; [facility] Review of Systems Includes: Review of [...] encounter Description No anxiety Last Documented On 3 2:45PM ; [facility] Physical Exam Includes: Physical Exam from this encounter Allergies Includes: Active Allergies No Known Allergies Care Photographic Restorer Name (Identifier) Role/Relation Location/Telecom Last Documented By Marsha Kimbrough MD ([id number]) Assigned practitioner (occupation) [address], [place], [place], [address] tel: Last Documented On 01/06/2024 10:49AM ; [facility] Isabell Goldman PA-C ([id number]) [address], [place], [place], [address] tel: Last Documented On 06/25/2023 5:31PM ; [facility] Encounters Encounter Provider Location (Healthcare Service Location) Date Check-In Time Check-Out Time Diagnosis Encounter Disposition IN HOUSE REFERRAL Marsha rivers MD [facility] 2022 2:42PM 3:49PM Overweight Payer Includes: Active Insurance Policies Plan Name (Payer ID) Coverage Type Member ID Group # Subscriber (ID) Relationship Effective Dates 1 - [facility] ([id number]) [id number] 2 Willy Dahl Self Last Documented On 3 8:38AM ; [facility] Clinical Notes Includes: Clinical Notes from this encounter * Progress note Date Encounter Last Documented by 07/29/2023 IN HOUSE REFERRAL Last documente d on 07/30/2023; 12:15 PM, Marsha Kimbrough MD; [facility] Active Problems & Conditions - Joint Pain, Localized in the Right Shoulder - Neck Pain Chief Complaint The Chief Complaint is: Neck pain. Referred Here Referred by R. History of Present Illness Willy Dahl is a 58 year old male. - Allergy list reviewed - Problem list reviewed - Medication list reviewed - Previous history of new onset pain Injury is not work related or an automotive accident - Patient pain level from 1-10: 2 - Yes, previous treatment. - History of Chiropractic Medications used for this condition: This is a very pleasant 58-year-old man seeing me as an in-house referral from Dr. Schulz. He is here as evaluation for neck pain and right greater than left radicular type pain. He does have a little bit of pain and perceived weakness in the left shoulder girdle, but the majority of his pain issues are in the right deltoid and down the right thumb. He said it got really bad a few months ago, but given a little bit of time and has started to improve over the last month. He is about to schedule physical therapy which Dr. Schulz recommended for him. He denies any difficulty with fine motor control in the hands. Denies any issues with his balance. He has never had neck or back surgeries. He only has a medical history of hypertension. He is a current 1 pack/day smoker. 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 Current Medication - Albuterol Sulfate HFA 108 (90 Base) MCG/ACT Inhalation Aerosol Solution 50 days, 0 refills - Allopurinol 300 MG Oral Tablet 90 days, 0 refills - Icosapent Ethyl 1 GM Oral Capsule 90 days, 0 refills - Losartan Potassium-HCTZ 100-12.5 MG Oral Tablet 90 days, 0 refills - Metoprolol Succinate ER 100 MG Oral Tablet Extended Release 24 Hour 90 days, 0 refills - Omeprazole 40 MG Oral Capsule Delayed Release 90 days, 0 refills - Rosuvastatin Calcium 10 MG Oral Tablet 90 days, 0 refills - Vascepa 0.5 GM Oral Capsule take as directed 0 days, 0 refills Past Medical/Surgical History Past medical and surgical history non-contributory. Social History Yes, current smoker. Current diet: No recent change in diet. Caffeine use: No caffeine use. Tobacco use: Tobacco use. Alcohol: Alcohol use. Drug Use: Not using drugs. Habits: Exercising regularly. Allergies - No Known Allergies Family History Cancer Systemic hypertension Review Of Systems Systemic: Not [...] Immunologic: No complaint of seasonal allergic reaction. Physical Findings - Vitals taken 07/29/2023 02:[address] Height 76 in Weight 282 lbs Body Mass Index 34.3 kg/m2 Body Surface Area 2.6 m2 General: Alert and Oriented 3 Focused Musculoskeletal Exam of the Spine: No focal tenderness in the cervical, thoracic, or lumbar spine Motor EF WE T FF HI Right 5/5 5/5 5/5 5/5 5/5 Left 5/5 5/5 5/5 5/5 5/5 Sensation C5 C6 C7 C8 T1 Right 2 1 2 2 2 Left 2 2 2 2 2 Biceps reflex is 2+ bilaterally Brachioradialis reflex is 2+ bilaterally Triceps reflex is 2+ bilaterally Negative Copeland's bilaterally Patient is able to ambulate in the room without assistive device Symmetric, palpable radial pulses bilaterally Patellar reflex is 1+ bilaterally Achilles reflex is 1+ bilaterally No ankle clonus Symmetric, palpable posterior tibialis pulse bilaterally Tests 4v Cervical Spine X-ray Ap, Lateral, Flexion, and Extension views of the Cervical Spine were obtained in the office today There is no obvious fracture or spondylolisthesis. There is anterior osteophyte formation at C5-6 MRI cervical spine I do not see any compressive pathology at C2-3 At C3-4, there is severe left foraminal stenosis At C4-5, there is severe right foraminal stenosis and moderate left foraminal stenosis At C5-6, there is moderate right foraminal stenosis without much on the left At C6-7, I do not see any compressive pathology User Defined 5 This is a 58-year-old man with right greater than left cervical radiculopathy Is very nice meeting Willy in the office. I agree that I think a course of physical therapy will help him a lot. I am going to prescribe him a Medrol Dosepak as well as some Robaxin. He can call if he wishes undergo C6-7 epidural steroid injection. Otherwise, I will see him back in about 3 months. Assessment - Overweight Previous Tests Imaging: X-Ray: An X-ray was performed 07/29/2023 Neck @ [facility]. MRI Scan: An MRI was performed 01/25/2023 Neck @ [facility]. Therapy - Intervention and counseling on cessation of tobacco use. Counseling/Education - Lose weight Plan StartCited - Cervicalgia Therapy/Physical Therapy: Cervical Instructions: See PT order attached Methocarbamol 750 MG tablet Take 1 tablet PO up to three times a day, NEEDED, 30 days, 0 refills Medrol 4 MG tablet take as directed, 7 days, 0 refills EndCited Practice Management Use of tobacco assessment performed Review of medications documented. Care Team - Isabell Goldman PA-C Notes This dictation was done with voice recognition software and may contain errors and omissions.
--- OUTSIDE RECORDS SUMMARY | 2025-10-12 15:30 | XMS_ITS | Clinical Summary ---
Author Organization [facility] , [facility] Address [address] [place] [address] Phone Care Team Providers Care Assistant Health Educator Name Role Phone Kaylan YU, Marsha Unavailable [phone] Isabell Goldman PA-C Unavailable [phone] Reason for Referral 06/26/2023 Encounter for Physician Specified Date Recorded Target Due Date Referral Type Referring Provider Reason For Referral 06/26/2023 08/25/2023 Patient referral to specialist (procedure) Tobacco abuse counseling Note: Dr. Kimbrough Last Documented On 4 12:44PM ; [facility] Reason for Visit and Chief Complaint The Chief Complaint is: Right Shoulder Rotator Cuff Tear Problems Includes: Problems addressed during this encounter and other active Problems All Visits Onset Date Date of Diagnosis Resolved Date Provid er Condition Status Neck Pain 07/29/2023 07/29/2023 Marsha Kimbrough MD Active Last Documented On 5 1:42AM ; [facility] Joint Pain Shoulder Right 06/25/2023 06/25/2023 Niki Schulz MD Active Last Documented On 5 1:42AM ; [facility] Plan of Treatment I personally reviewed the patient's MRI which demonstrates rotator cuff tendinopathy, some mild interstitial tearing without evidence of a full-thickness tear. I talked to the patient at length about this. I also talked to him about his biceps symptoms, I cannot visualize the patient's biceps tendon on MRI which is consistent with a likely biceps tendon tear given his subtle Orlin and crampiness of the biceps. Overall the patient states that his shoulder function is improved and the pain that he had in his shoulder has gotten significantly better. His original pain started in his neck and radiated down his arm which was the impetus for all these different tests. The patient is afraid that this pain will come back. I explained that the radiating pain that he is having from his neck down his arm is likely due to his degenerative cervical spine. I reviewed the MRI report for his cervical spine which noted multilevel degenerative disc disease and various levels of stenosis. I think that this is likely a large contributor to his overall discomfort. I would like him evaluated by one of my spine colleagues and provided him with a referral for Dr. Kimbrough. With regard to his shoulder, the patient has good range of motion and no significant pain on exam. We talked about steroid injection which I do not think the patient would particularly benefit from at this time given his significantly improved symptoms. We also talked about a trial of physical therapy which could optimize his function and the patient was given a referral for this. I will see the patient back in approximately 6 weeks for repeat clinical check. - Last Documented On 01/06/2024 10:49AM ; [facility] Pending Tests Order Diagnosis Results Due Ordering P rebeca Therapy - Physical Therapy Shoulder Tobacco abuse counseling 06/26/23 Jim Schulz MD Last Documented On 3 5:10PM ; [facility], [facility] Referrals To Diagnosis Consult with Orthopedic Tobacco abuse counseling Note: Dr. Kimbrough Last Documented On 4 12:44PM ; [facility], [facility] Instructions to patient Intervention and counseling on cessation of tobacco use Last Documented On 3 10:26AM ; [facility], [facility] Lose weight Last Documented On 3 2:20PM ; [facility], [facility] Assessments Includes: Assessments from this encounter Findings - Overweight - Last Documented On 01/06/2024 10:49AM ; [facility], [facility] Instructions Includes: Instructions from this encounter Instructions to patient Intervention and counseling on cessation of tobacco use Last Documented On 3 10:26AM ; [facility] Lose weight Last Documented On 3 2:20PM ; [facility], [facility] Medical Equipment - Implanted Devices Includes: Current Devices No Medical Equipment Recorded Medications Includes: Medications discussed during this encounter and other current Medications Current Medications (continue as prescribed) Vascepa 0.5 GM Oral Capsule 06/25/2023 Provider: Diagnosis: Last Documented On 3 5:31PM By Allyson Cash ; [facility], [facility] Albuterol Sulfate HFA 108 (9 0 Base) MCG/ACT Inhalation Aerosol Solution 06/07/2023 Provider: SHERLYN UNDERWOOD ER Diagnosis: Last Documented On 3 2:04PM By Robert Welsh ; [facility], [facility] Allopurinol 300 MG Oral Tablet 04/02/2023 Provider: SHERLYN KINGSLEY Diagnosis: Last Documented On 3 2:04PM By Robert Welsh ; [facility], [facility] Icosapent Ethyl 1 GM Oral Capsule 04/02/2023 Provide r: SHERLYN KINGSLEY Diagnosis: Last Documented On 3 2:04PM By Robert Welsh ; [facility], [facility] Losartan Potassium-HCTZ 100-12.5 MG Oral Tablet 2022 Provider: SHERLYN KINGSLEY Diagnosis: Last Documented On 3 2:04PM By Robert Welsh ; [facility], [facility] Metoprolol Succinate ER 100 MG Oral Tablet Extended Release 24 Hour 04/02/2023 Provider: SHERLYN KINGSLEY Diagnosis: Last Documented On 3 2:04PM By Robert Welsh ; [facility], [facility] Omeprazole 40 MG Oral Capsule Delayed Release 04/02/20 23 Provider: SHERLYN KINGSLEY Diagnosis: Last Documented On 3 2:04PM By Robert Welsh ; [facility], [facility] Rosuvastatin Calcium 10 MG Oral Tablet 04/02/2023 Pr ovider: SHERLYN TEETEE Diagnosis: Last Documented On 3 2:04PM By Robert Welsh ; [facility], [facility] Past Medications on file Methocarbamol 750 MG Oral Tablet 07/29/2023 - 08/28/2023 Provider: Marsha Kimbrough MD Diagnosis: Cervicalgia Take 1 tablet PO up to three times a day, NEEDED Last Documented On 3 4:10PM By Marsha Kimbrough ; [facility], [facility] Medrol 4 MG Oral Tablet Therapy Pack 07/29/2023 - 08/05/2023 Provider: Marsha Hall MD Diagnosis: Cervicalgia take as directed Last Documented On 3 4:10PM By Marsha Kimbrough ; [facility] Medications Administered Includes: Administered Medications from this encounter No Administered Medications Recorded Vital Signs Includes: Vital Signs from this encounter Vital Name 06/26/2023 10:26A Height (in) 76 Weight (lb) 285 Body Mass Index 34.7 Body Surface Area 2.6 Note: asn Last Documented: On 06/26/2023 11:04A M ; [facility] Results Includes: Results discussed during this encounter No Results Recorded For Specified Dates History of Present Illness Includes: History of Present Illness from this encounter ABBY Dahl is a 57 year old male. - Symptoms improves w/ warm compress worse when sleeping. - Allergy list reviewed - Problem list reviewed - Medication list reviewed - Previous history of new onset pain Injury is not work related or an automotive accident - Patient pain level from 1-10: 5 - Yes, previous treatment. - History of Chiropractic 57-year-old male with right shoulder pain. The patient originally started in the patient's neck and radiated down his arm and he had a battery of different tests as a result. He had a recent MRI that noted some rotator cuff tendinopathy and delamination without evidence of a full-thickness tear. He also had an MRI of his cervical spine which noted significant degenerative disease and stenosis. He had an EMG performed which noted possible cervical radiculopathy. Patient presents to me for shoulder evaluation. Social History Description Last Updated Alcohol use 06/26/2023 Last Documented On 4 10:49AM ; [facility], [facility] Exercising regularly 06/26/2023 Last Documented On 4 10:49AM ; [facility], [facility] No caffeine use 06/26/2023 Last Documented On 4 10:49AM ; [facility], [facility] No recent change in diet 06/26/2023 Last Documented On 4 10:49AM ; [facility], [facility] Not using drugs 06/26/2023 Last Documented On 4 10:49AM ; [facility], [facility] Tobacco use 06/26/2023 Last Documented On 4 10:49AM ; [facility], [facility] Yes, current smoker. 06/26/2023 Last Documented On 4 10:49AM ; [facility] Sex - Male 01/06/2024 Last Documented On 4 10:49AM ; [facility] Smoking Status Unknown Procedures and Surgical History Includes: Procedures from this encounter Procedures Code Diagnosis Performing Provider Service L ocation Service Date intervention and counseling on cessation of tobacco use 4000F Last Documented On 3 10:26AM ; [facility] use of tobacco assessment performed 1000F Last Documented On 3 10:26AM ; [facility] review of medications documented 1160F Last Documented On 3 10:26AM ; [facility] an MRI was performed 92379 Last Documented On 3 10:26AM ; [facility] Medical History Includes: Medical History addressed during this encounter Description Last Updated Past medical and surgical history non-co ntributory 06/26/2023 Last Documented On 4 10:49AM ; [facility] Family History Includes: Family History addressed during this encounter Description Last Updated Maternal history of systemic hypertensio n 06/26/2023 Last Documented On 4 10:49AM ; [facility], [facility] Paternal history of family history of ca ncer 06/26/2023 Last Documented On 4 10:49AM ; [facility] Review of Systems Includes: Review of Systems [...] Description No anxiety Last Documented On 3 10:26AM ; [facility] Physical Exam Includes: Physical Exam from this encounter Allergies Includes: Active Allergies No Known Allergies Care Assistant Health Educator Name (Identifier) Role/Relation Location/Telecom Last Documented By Marsha Kimbrough MD ([id number]) Assigned practitioner (occupation) [address], [place], [place], [address] tel:[phone] Last Documented On 01/06/2024 10:49AM ; [facility] Isabell Goldman PA-C ([id number]) [address], [place], [place], [address] tel:[phone] Last Documented On 06/25/2023 5:31PM ; [facility] Encounters Encounter Provider Location (Healthcare Service Location) Date Check-In Time Check-Out Time Diagnosis Encounter Disposition Physician Specified Jim Schulz MD [facility] 2022 10:19AM 11:37AM Overweight Payer Includes: Active Insurance Policies Plan Name (Payer ID) Coverage Type Member ID Group # Subscriber (ID) Relationship Effective Dates 1 - [facility] ([id number]) [id number] Willy Yodervan Self Last Documented On 3 8:38AM ; [facility] Clinical Notes Includes: Clinical Notes from this encounter * Progress note Date Encounter Last Documented by 06/26/2023 Physician Specified Sean mann on 01/06/2024; 10:49 AM, Jim Schulz MD; [facility] Active Problems & Conditions - Joint Pain, Localized in the Right Shoulder - Neck Pain Chief Complaint The Chief Complaint is: Right Shoulder Rotator Cuff Tear. Referred Here Referred by LAST PCP VISIT [...] Yes, previous treatment. - History of Chiropractic 57-year-old male with right shoulder pain. The patient originally started in the patient's neck and radiated down his arm and he had a battery of different tests as a result. He had a recent MRI that noted some rotator cuff tendinopathy and delamination without evidence of a full-thickness tear. He also had an MRI of his cervical spine which noted significant degenerative disease and stenosis. He had an EMG performed which noted possible cervical radiculopathy. Patient presents to me for shoulder evaluation. Current Medication - Albuterol Sulfate HFA 108 (90 Base) MCG/ACT Inhalation Aerosol Solution Aerosol, solution 50 days, 0 refills - Allopurinol 300 MG Oral Tablet 90 days, 0 refills - Icosapent Ethyl 1 GM Oral Capsule Capsule, conventional 90 days, 0 refills - Losartan Potassium-HCTZ 100-12.5 MG Oral Tablet 90 days, 0 refills - Metoprolol Succinate ER 100 MG Oral Tablet Extended Release 24 Hour Tablet, extended-release 24 hour 90 days, 0 refills - Omeprazole 40 MG Oral Capsule Delayed Release Capsule, delayed-release 90 days, 0 refills - Rosuvastatin Calcium 10 MG Oral Tablet 90 days, 0 refills - Vascepa 0.5 GM Oral Capsule Capsule, conventional take as directed 0 days, 0 refills [...] allergic reaction. Physical Findings - Vitals taken 06/26/2023 10:26 am asn Height 76 in Weight 285 lbs Body Mass Index 34.7 kg/m2 Body Surface Area 2.6 m2 Right SHOULDER Range of Motion: Abduction 160 degrees Forward flexion 160 degrees External rotation with arm at side 50 degrees Internal rotation to level of low lumbar Strength: Abduction/Forward flexion [5/5], Internal rotation [5/5], External rotation [5/5]. Impingement sign mildly positive Cross Arm test negative Pacheco's negative Speeds mildly positive There is mild pain at the lateral acromion/subacromial space. AC joint is not tender. Bicipital Groove is mildly tender. There is a subtle Orlin deformity with some sagging of the biceps muscle and crampiness of the biceps. Assessment - Overweight Previous Tests Imaging: MRI Scan: An MRI was performed. Therapy - Intervention and counseling on cessation of tobacco use. Counseling/Education - Lose weight Plan StartCited - Tobacco abuse counseling Therapy/Physical Therapy: Shoulder Instructions: See PT order attached Referral/Orthopedic: Consult with Orthopedic Instructions: Dr. Enriquez-Fern EndCited I personally reviewed the patient's MRI which demonstrates rotator cuff tendinopathy, some mild interstitial tearing without evidence of a full-thickness tear. I talked to the patient at length about this. I also talked to him about his biceps symptoms, I cannot visualize the patient's biceps tendon on MRI which is consistent with a likely biceps tendon tear given his subtle Orlin and crampiness of the biceps. Overall the patient states that his shoulder function is improved and the pain that he had in his shoulder has gotten significantly better. His original pain started in his neck and radiated down his arm which was the impetus for all these different tests. The patient is afraid that this pain will come back. I explained that the radiating pain that he is having from his neck down his arm is likely due to his degenerative cervical spine. I reviewed the MRI report for his cervical spine which noted multilevel degenerative disc disease and various levels of stenosis. I think that this is likely a large contributor to his overall discomfort. I would like him evaluated by one of my spine colleagues and provided him with a referral for Dr. Kimbrough. With regard to his shoulder, the patient has good range of motion and no significant pain on exam. We talked about steroid injection which I do not think the patient would particularly benefit from at this time given his significantly improved symptoms. We also talked about a trial of physical therapy which could optimize his function and the patient was given a referral for this. I will see the patient back in approximately 6 weeks for repeat clinical check. Notes This dictation was done with voice recognition software and may contain errors and omissions. Practice Management Use of tobacco assessment performed Review of medications documented. Care Team - Isabell Goldman PA-C
--- OUTSIDE RECORDS SUMMARY | 2025-10-12 15:30 | XMS_ITS ---
Author Organization [facility] , [facility] Address [address] [place] [address] Phone Care Team Providers Care Team Leader Name Role Phone Kaylan YU, Marsha Unavailable [phone] Isabell Goldman PA-C Unavailable [phone] Reason for Referral 06/26/2023 Encounter for Physician Specified Date Recorded Target Due Date Referral Type Referring Provider Reason For Referral 06/26/2023 08/25/2023 Patient referral to specialist (procedure) Tobacco abuse counseling Note: Dr. Kimbrough Last Documented On 4 12:44PM ; [facility], [facility] Problems Includes: Active, inactive, and resolved Problems All Visits Onset Date Date of Diagnosis Resolved Date Provid er Condition Status Neck Pain 07/29/2023 07/29/2023 Marsha Kimbrough MD Active Last Documented On 5 1:42AM ; [facility] Joint Pain Shoulder Right 06/25/2023 06/25/2023 Niki Schulz MD Active Last Documented On 5 1:42AM ; [facility] Plan of Treatment Referrals To Diagnosis Consult with Orthopedic Tobacco abuse counseling Note: Dr. Kimbrough Last Documented On 4 12:44PM ; [facility] Instructions to patient Intervention and counseling on cessation of tobacco use Last Documented On 3 2:48PM ; [facility] Lose weight Last Documented On 3 2:45PM ; [facility] Intervention and counseling on cessation of tobacco use Last Documented On 3 10:26AM ; [facility] Lose weight Last Documented On 3 2:20PM ; [facility], [facility] Intervention and counseling on cessation of tobacco use Last Documented On 3 5:31PM ; [facility], [facility] Assessments Includes: Assessments for all patient encounters Findings Encounter Date Overweight IN HOUSE REFERRAL with Marsha Glover MD 07/29/2023 Last Documented On 3 2:45PM ; [facility], [facility] Overweight Physician Specified with Jim Schulz MD 06/26/2023 Last Documented On 3 2:20PM ; [facility], [facility] Instructions Includes: Instructions for all patient encounters Instructions to patient Intervention and counseling on cessation of tobacco use Last Documented On 3 2:48PM ; [facility] Lose weight Last Documented On 3 2:45PM ; [facility] Intervention and counseling on cessation of tobacco use Last Documented On 3 10:26AM ; [facility], [facility] Lose weight Last Documented On 3 2:20PM ; [facility], [facility] Intervention and counseling on cessation of tobacco use Last Documented On 3 5:31PM ; [facility], [facility] Medical Equipment - Implanted Devices Includes: Current and historical Devices No Medical Equipment Recorded Medications Includes: Current and historical Medications Current Medications (continue as prescribed) Vascepa 0.5 GM Oral Capsule 06/25/2023 Provider: Diagnosis: Last Documented On 3 5:31PM By Allyson Cash ; [facility], [facility] Albuterol Sulfate HFA 108 (9 0 Base) MCG/ACT Inhalation Aerosol Solution 06/07/2023 Provider: SHERLYN UNDERWOOD ER Diagnosis: Last Documented On 3 2:04PM By Robert Welsh ; [facility], [facility] Allopurinol 300 MG Oral Tablet 04/02/2023 Provider: SHERLYN KINGSLEY Diagnosis: Last Documented On 3 2:04PM By Robert Welsh ; [facility], [facility] Icosapent Ethyl 1 GM Oral Capsule 04/02/2023 Provide r: SHERLYN KINGSLEY Diagnosis: Last Documented On 3 2:04PM By Robert Welsh ; [facility], [facility] Losartan Potassium-HCTZ 100-12.5 MG Oral Tablet 2022 Provider: SHERLYN KINGSLEY Diagnosis: Last Documented On 3 2:04PM By Robert Welsh ; [facility] Metoprolol Succinate ER 100 MG Oral Tablet Extended Release 24 Hour 04/02/2023 Provider: SHERLYN KINGSLEY Diagnosis: Last Documented On 3 2:04PM By Robert Welsh ; [facility] Omeprazole 40 MG Oral Capsule Delayed Release 04/02/20 Provider: SHERLYN KINGSLEY Diagnosis: Last Documented On 3 2:04PM By Robert Welsh ; [facility] Rosuvastatin Calcium 10 MG Oral Tablet 04/02/2023 Pr ovider: SHERLYN TEETEE Diagnosis: Last Documented On 3 2:04PM By Robert Welsh ; [facility] Past Medications on file Methocarbamol 750 MG Oral Tablet 07/29/2023 - 08/28/2023 Provider: Marsha Kimbrough MD Diagnosis: Cervicalgia Take 1 tablet PO up to three times a day, NEEDED Last Documented On 3 4:10PM By Marsha Kimbrough ; [facility] Medrol 4 MG Oral Tablet Therapy Pack 07/29/2023 - 08/05/2023 Provider: Marsha Hall MD Diagnosis: Cervicalgia take as directed Last Documented On 3 4:10PM By Marsha Kimbrough ; [facility] Medications Administered Includes: Administered Medications in patient's chart No Administered Medications Recorded Results Includes: Results from 10/12/2024 through 10/12/2025 No Results Recorded For Specified Dates Social History Description Last Updated Alcohol use 06/26/2023 Last Documented On 4 10:49AM ; [facility] Exercising regularly 06/26/2023 Last Documented On 4 10:49AM ; [facility] No caffeine use 06/26/2023 Last Documented On 4 10:49AM ; [facility] No recent change in diet 06/26/2023 Last Documented On 4 10:49AM ; [facility] Not using drugs 06/26/2023 Last Documented On 4 10:49AM ; [facility] Tobacco use 06/26/2023 Last Documented On 4 10:49AM ; [facility], [facility] Yes, current smoker. 06/26/2023 Last Documented On 4 10:49AM ; [facility], [facility] Sex - Male 01/06/2024 Last Documented On 4 10:49AM ; [facility] Smoking Status Unknown Medical History Includes: Medical History in patient's chart Description Last Updated Past medical and surgical history non-co ntributory 06/26/2023 Last Documented On 4 10:49AM ; [facility], [facility] Family History Includes: Family History in patient's chart Description Last Updated Family history of cancer 07/29/2023 Last Documented On 3 12:15PM ; [facility], [facility] Family history of systemic hypertension 07/29/2023 Last Documented On 3 12:15PM ; [facility] Maternal history of systemic hypertensio n 06/26/2023 Last Documented On 4 10:49AM ; [facility] Paternal history of family history of ca ncer 06/26/2023 Last Documented On 4 10:49AM ; [facility] Mental Status Description No anxiety Last Documented On 3 2:45PM ; [facility], [facility] No anxiety Last Documented On 3 10:26AM ; [facility], [facility] No anxiety Last Documented On 3 5:31PM ; [facility], [facility] Allergies Includes: Active, inactive, and resolved Allergies No Known Allergies Care Team Leader Name (Identifier) Role/Relation Location/Telecom Last Documented By Marsha Kimbrough MD ([id number]) Assigned practitioner (occupation) [address] [place] [address], , [id number] tel: Last Documented On 01/06/2024 10:49AM ; [facility], [facility] Isabell Goldman PA-C ([id number]) [address] [place] [address], , [id number] tel: Last Documented On 06/25/2023 5:31PM ; [facility] Payer Includes: Active Insurance Policies Plan Name (Payer ID) Coverage Type Member ID Group # Subscriber (ID) Relationship Effective Dates 1 - [facility] ([id number]) [id number] Willy Dahl Self Last Documented On 3 8:38AM ; [facility]
[2025-10-16 23:08] LABS: I006-IgE Cockroach, German <0.10 kU/L (Class 0); T006-IgE Cedar, Mountain <0.10 kU/L (Class 0); T007-IgE Oak, White <0.10 kU/L (Class 0); T008-IgE Elm, American <0.10 kU/L (Class 0); T015-IgE Ash, White <0.10 kU/L (Class 0); T022-IgE Pecan, Hickory <0.10 kU/L (Class 0); W001-IgE Ragweed, Short 2.54 kU/L (Class III); W011-IgE Thistle, Russian <0.10 kU/L (Class 0); W014-IgE Pigweed, Common <0.10 kU/L (Class 0)
== END 2025-10-12 23:59 | disposition home or self-care (01) ==
LOC: LAB 15:28
PROVIDERS: PCP Family Medicine; Visit Provider Student in an Organized Health Care Education/Training Program
DX: J30.9 Allergic rhinitis, unspecified (principal)
CPT/HCPCS: 36415; 82785; 86003